=== PATIENT | male | born 1990 | race Caucasian/White ===

== ENCOUNTER 2018-04-05 13:32 | Emergency (ER) | payer BC ==
[2018-04-05] MEDS ORDERED: Mupirocin 2% Ointment 22 GM Tube ONE (13:53)
== END 2018-04-05 14:10 | disposition home or self-care (01) ==
LOC: SCSER 13:32
DX: S01.81XA Laceration without foreign body of other part of head, initial encounter (principal); F17.210 Nicotine dependence, cigarettes, uncomplicated; Y04.0XXA Assault by unarmed brawl or fight, initial encounter
CPT/HCPCS: 99282